=== PATIENT | female | born 1950 | race Caucasian/White ===

== ENCOUNTER 2016-07-31 10:46 | Inpatient (IN) | payer OTHER, BC ==
[~2016-07-31] VITALS: Ht 170.2 cm; Wt 89.4 kg
[~2016-07-31 10:46] MED LIST: ASPIRIN81 M2 PO; LOSARTAN POTAS100 MG PO; OMEPRAZOLE40 M1 PO; TYLENOL EXTRA500 MG PO; ZOCOR40 MG PO; ZOLOFT100 MG PO
[2016-08-29 05:56] VITALS: BP 109/66
[2016-08-29 10:13] VITALS: BP 153/80
[2016-08-29 14:45] VITALS: BP 124/64
[2016-08-29 22:42] VITALS: BP 111/62
[2016-08-30 03:19] VITALS: BP 146/86
[2016-08-30 07:48] LABS: HEMATOCRIT 38.6 % (36.0-46.0); MCH 29.6 PG (29.0-34.0); MCHC 33.7 G/DL (30.0-36.0); MCV 87.9 FL (83-99); MEAN PLAT.VOLUME 10.1 uM^3 (9.5-12.4); PLATELET COUNT 332 K/uL (156-360); RBC DIS.WIDTH-CV 13.5 % (11.8-14.6); RBC DIS.WIDTH-SD 43.4 % (39-53); RED BLOOD COUNT 4.39 M/uL (3.80-5.20)
[2016-08-30 08:13] LABS: ANION GAP 8 MEQ/L (2-14); CHLORIDE 104 MEQ/L (99-109); GFR ESTIMATE (CALCULATED) > 59 mL/min/; GLUCOSE 150 mg/dL (70-99); MAGNESIUM 1.6 mg/dl (1.3-2.7); POTASSIUM 4.1 MEQ/L (3.7-5.4); SAMPLE HEMOLYSIS CHECK 0; SAMPLE ICTERIC CHECK 0; SAMPLE LIPEMIA CHECK 0; SODIUM 139 MEQ/L (136-147); UREA NITROGEN (BUN) 13 mg/dL (9-23)
[2016-08-30 08:44] VITALS: BP 138/71
[2016-08-30 11:50] VITALS: BP 137/76
[2016-08-30 17:40] VITALS: BP 108/62
[2016-08-30 19:51] VITALS: BP 135/69
[2016-08-31] VITALS (7 sets, daily range): BP systolic 104–138; BP diastolic 55–76
[2016-08-31 00:41] LABS: BASE EXCESS 2.4 mEq/L (-3 to +3); BICARBONATE 27.2 mEq/L (22-26); CARBOXY HGB 1.1 % (0-5); COMMENTS - BLOOD GASES C+A+; DEVICE NCHH; FI02 100 %; METHEMOGLOBIN 1.2 % (0-1.5); O2 FLOW 70 L/MIN; PCO2 42 mm Hg (35-45); PO2 55 mm Hg (80-100); SITE RR; pH 7.42 (7.35-7.45)
[2016-08-31 10:18] LABS: ANION GAP 7 MEQ/L (2-14); CHLORIDE 105 MEQ/L (99-109); MAGNESIUM 1.7 mg/dl (1.3-2.7); SAMPLE HEMOLYSIS CHECK 0; SAMPLE ICTERIC CHECK 0; SAMPLE LIPEMIA CHECK 0; SODIUM 136 MEQ/L (136-147)
[2016-08-31 10:19] LABS: HEMATOCRIT 38.7 % (36.0-46.0); MCH 29.4 PG (29.0-34.0); MCHC 32.6 G/DL (30.0-36.0); MCV 90.4 FL (83-99); MEAN PLAT.VOLUME 10.8 uM^3 (9.5-12.4); PLATELET COUNT 271 K/uL (156-360); RBC DIS.WIDTH-CV 13.8 % (11.8-14.6); RBC DIS.WIDTH-SD 45.9 % (39-53); RED BLOOD COUNT 4.28 M/uL (3.80-5.20); WHITE BLOOD COUNT 13.3 K/uL (4.1-10.2)
[2016-08-31 10:23] LABS: GFR ESTIMATE (CALCULATED) > 59 mL/min/; GLUCOSE 116 mg/dL (70-99); UREA NITROGEN (BUN) 9 mg/dL (9-23)
[2016-09-01 00:09] LABS: BASE EXCESS 5.1 mEq/L (-3 to +3); CARBOXY HGB 0.8 % (0-5); COMMENTS - BLOOD GASES A+C+; DEVICE HHFNC WITH NRB MASK; FI02 100 %; METHEMOGLOBIN 0.8 % (0-1.5); O2 FLOW 50 L/MIN; PCO2 39 mm Hg (35-45); PO2 61 mm Hg (80-100); SITE RR; TOTAL RESP RATE 20 resp/min; pH 7.48 (7.35-7.45)
[2016-09-01 03:54] VITALS: BP 122/64
[2016-09-01 06:59] LABS: HEMATOCRIT 32.4 % (36.0-46.0); MCH 30.3 PG (29.0-34.0); MCV 89.3 FL (83-99); PLATELET COUNT 215 K/uL (156-360); RBC DIS.WIDTH-CV 13.4 % (11.8-14.6); RED BLOOD COUNT 3.63 M/uL (3.80-5.20)
[2016-09-01 07:38] LABS: ANION GAP 7 MEQ/L (2-14); CHLORIDE 103 MEQ/L (99-109); GFR ESTIMATE (CALCULATED) > 59 mL/min/; GLUCOSE 107 mg/dL (70-99); MAGNESIUM 1.8 mg/dl (1.3-2.7); SAMPLE HEMOLYSIS CHECK 0; SAMPLE ICTERIC CHECK 0; SAMPLE LIPEMIA CHECK 0; SODIUM 137 MEQ/L (136-147); UREA NITROGEN (BUN) 8 mg/dL (9-23)
[2016-09-01 07:42] VITALS: BP 120/60
[2016-09-01 11:39] VITALS: BP 109/62
[2016-09-01 16:12] VITALS: BP 115/63
[2016-09-01 19:33] VITALS: BP 156/72
[2016-09-01 22:50] VITALS: BP 141/77
[2016-09-02 02:24] VITALS: BP 124/69
[2016-09-02 08:36] LABS: HEMATOCRIT 33.1 % (36.0-46.0); MCH 29.9 PG (29.0-34.0); MCHC 33.2 G/DL (30.0-36.0); MCV 89.9 FL (83-99); MEAN PLAT.VOLUME 10.4 uM^3 (9.5-12.4); PLATELET COUNT 252 K/uL (156-360); RBC DIS.WIDTH-CV 13.6 % (11.8-14.6); RBC DIS.WIDTH-SD 44.7 % (39-53); RED BLOOD COUNT 3.68 M/uL (3.80-5.20)
[2016-09-02 08:40] LABS: ANION GAP 9 MEQ/L (2-14); CHLORIDE 104 MEQ/L (99-109); GFR ESTIMATE (CALCULATED) > 59 mL/min/; GLUCOSE 117 mg/dL (70-99); POTASSIUM 4.4 MEQ/L (3.7-5.4); SAMPLE HEMOLYSIS CHECK 0; SAMPLE ICTERIC CHECK 0; SAMPLE LIPEMIA CHECK 0; SODIUM 141 MEQ/L (136-147); UREA NITROGEN (BUN) 11 mg/dL (9-23)
[2016-09-02 12:23] VITALS: BP 120/69
[2016-09-02 17:47] VITALS: BP 123/73
[2016-09-02 20:48] VITALS: BP 126/77
[2016-09-03] VITALS (7 sets, daily range): BP systolic 109–140; BP diastolic 57–75
[2016-09-03 07:27] LABS: HEMATOCRIT 33.1 % (36.0-46.0); MCHC 33.5 G/DL (30.0-36.0); MCV 89.5 FL (83-99); MEAN PLAT.VOLUME 9.8 uM^3 (9.5-12.4); PLATELET COUNT 252 K/uL (156-360); RBC DIS.WIDTH-CV 13.6 % (11.8-14.6); RBC DIS.WIDTH-SD 44.7 % (39-53); WHITE BLOOD COUNT 11.3 K/uL (4.1-10.2)
[2016-09-03 07:50] LABS: ANION GAP 10 MEQ/L (2-14); CHLORIDE 104 MEQ/L (99-109); GFR ESTIMATE (CALCULATED) > 59 mL/min/; GLUCOSE 99 mg/dL (70-99); POTASSIUM 4.2 MEQ/L (3.7-5.4); SAMPLE HEMOLYSIS CHECK 0; SAMPLE ICTERIC CHECK 0; SAMPLE LIPEMIA CHECK 0; SODIUM 140 MEQ/L (136-147); UREA NITROGEN (BUN) 13 mg/dL (9-23)
[2016-09-04 03:12] VITALS: BP 133/65
[2016-09-04 06:38] LABS: HEMATOCRIT 33.3 % (36.0-46.0); MCH 29.7 PG (29.0-34.0); MEAN PLAT.VOLUME 9.9 uM^3 (9.5-12.4); PLATELET COUNT 283 K/uL (156-360); RBC DIS.WIDTH-CV 13.4 % (11.8-14.6); RBC DIS.WIDTH-SD 44.3 % (39-53); WHITE BLOOD COUNT 8.4 K/uL (4.1-10.2)
[2016-09-04 06:59] LABS: ANION GAP 9 MEQ/L (2-14); CHLORIDE 103 MEQ/L (99-109); GFR ESTIMATE (CALCULATED) > 59 mL/min/; GLUCOSE 96 mg/dL (70-99); MAGNESIUM 1.9 mg/dl (1.3-2.7); POTASSIUM 4.3 MEQ/L (3.7-5.4); SAMPLE HEMOLYSIS CHECK 0; SAMPLE ICTERIC CHECK 0; SAMPLE LIPEMIA CHECK 0; SODIUM 138 MEQ/L (136-147); UREA NITROGEN (BUN) 10 mg/dL (9-23)
[2016-09-04 08:39] VITALS: BP 165/67
[2016-09-04 16:00] VITALS: BP 110/69
[2016-09-04 17:08] VITALS: BP 110/69
[2016-09-04 22:40] VITALS: BP 144/69
[2016-09-05 07:27] LABS: ANION GAP 9 MEQ/L (2-14); CHLORIDE 101 MEQ/L (99-109); GFR ESTIMATE (CALCULATED) > 59 mL/min/; GLUCOSE 87 mg/dL (70-99); MAGNESIUM 1.9 mg/dl (1.3-2.7); POTASSIUM 4.3 MEQ/L (3.7-5.4); SAMPLE HEMOLYSIS CHECK 0; SAMPLE ICTERIC CHECK 0; SAMPLE LIPEMIA CHECK 0; SODIUM 137 MEQ/L (136-147); UREA NITROGEN (BUN) 12 mg/dL (9-23)
[2016-09-05 08:25] LABS: HEMATOCRIT 34.1 % (36.0-46.0); MCH 29.6 PG (29.0-34.0); MCHC 33.1 G/DL (30.0-36.0); MCV 89.3 FL (83-99); MEAN PLAT.VOLUME 9.8 uM^3 (9.5-12.4); PLATELET COUNT 305 K/uL (156-360); RBC DIS.WIDTH-SD 40.9 % (39-53); RED BLOOD COUNT 3.82 M/uL (3.80-5.20)
[2016-09-05 08:43] VITALS: BP 152/76
[2016-09-05] MEDS ORDERED: ENDOCET 5-3251 EACH PO (11:56)
[2016-09-05] MEDS ORDERED: SPIRIVA RESPIMAT4 GM IH (11:56)
[2016-09-05] MEDS ORDERED: ADVAIR HFA120 INHALA IH (11:56)
[2016-09-05 12:31] VITALS: BP 131/72
[2016-09-05 17:41] VITALS: BP 136/74
[2016-09-05 22:39] VITALS: BP 143/72
[2016-09-06 08:28] VITALS: BP 134/78
== END 2016-09-06 10:08 | disposition home or self-care (01) | DRG 329 ==
LOC: 2SOUTH 10:46 → 5EAST 08-29 05:31 → 2SOUTH 08-29 05:31 → 5EAST 08-29 14:37 → 2SOUTH 08-29 16:05 → 5EAST 09-06 10:08
PROVIDERS: Physician Assistant; Surgery
PROC: 0DTP0ZZ Resection of Rectum, Open Approach (ICD-10-PCS; principal; 2016-08-29)
PROC: 0DTN0ZZ Resection of Sigmoid Colon, Open Approach (ICD-10-PCS; principal; 2016-08-29)
PROC: 0T778DZ Dilation of Left Ureter with Intraluminal Device, Via Natural or Artificial Opening Endoscopic (ICD-10-PCS; principal; 2016-08-29)
PROC: 0DBJ0ZZ Excision of Appendix, Open Approach (ICD-10-PCS; principal; 2016-08-29)
PROC: 0BC68ZZ Extirpation of Matter from Right Lower Lobe Bronchus, Via Natural or Artificial Opening Endoscopic (ICD-10-PCS; 2016-09-04)
PROC: 0BCB8ZZ Extirpation of Matter from Left Lower Lobe Bronchus, Via Natural or Artificial Opening Endoscopic (ICD-10-PCS; 2016-09-04)
DX: C18.9 Malignant neoplasm of colon, unspecified (principal); J96.01 Acute respiratory failure with hypoxia; J98.11 Atelectasis; K56.5 Intestinal adhesions [bands] with obstruction (postinfection); K57.32 Diverticulitis of large intestine without perforation or abscess without bleeding; I10 Essential (primary) hypertension; Z87.39 Personal history of other diseases of the musculoskeletal system and connective tissue; K21.0 Gastro-esophageal reflux disease with esophagitis; F41.1 Generalized anxiety disorder; F17.200 Nicotine dependence, unspecified, uncomplicated; T17.900A Unspecified foreign body in respiratory tract, part unspecified causing asphyxiation, initial encounter; Z88.6 Allergy status to analgesic agent; Y92.238 Other place in hospital as the place of occurrence of the external cause
CPT/HCPCS: 36415; 36600; 71010; 71275; 80048; 82803; 83735; 84100; 85025; 85027; 86850; 86900; 86901; 86920; 88302; 88305; 88307; 88341 TC; 88342 TC; 93005; 94010; 94640; 94640 76; 94667; 94668; 94760; 94799; 99202; C1758; C1769; J0131; J1100; J1170; J1335; J1650; J1940; J2250; J2405; J2710; J2920; J3010; J7040; J7050; J7120; J7512